=== PATIENT | female | born 1945 | race Caucasian/White ===

== ENCOUNTER 2018-11-13 15:36 | Outpatient (CLI) | payer MEDICARE, OTHER, SELFPAY ==
--- NOTE | 2018-11-13 11:03 | DI.RAD_ITS ---
EXAM: XR KNEE LT 2V AP,LAT INDICATION: pain. COMPARISON: No exams were available for comparison TECHNIQUE: 2D digital imaging was performed. FINDINGS: There is severe narrowing of medial femoral tibial joint and prominent periarticular spurring. There is also spurring at the patellofemoral joint. IMPRESSION: Severe degenerative changes of the medial femoral tibial joint.
== END 2018-11-13 15:56 ==
PROVIDERS: PCP Family Medicine; Visit Provider Orthopaedic Surgery
DX: M25.562 Pain in left knee (principal); M17.12 Unilateral primary osteoarthritis, left knee
CPT/HCPCS: 99203; 99214; 73560

== ENCOUNTER 2018-11-26 12:46 | Outpatient (CLI) | payer MEDICARE, OTHER, SELFPAY ==
--- NOTE | 2018-11-26 14:30 | W.PREOPHP ---
Assessment and Plan Assessment and plan (1) Osteoarthritis of left knee: Status: Chronic Assessment and plan: Plan: Educated patient on surgery covering surgical technique, recovery process, benefits and risks including but not limited to risk of infection, blood clot, damage to soft tissue/blood vessels/nerves in detail. After discussion patient gives verbal understanding of risks and elects to proceed with scheduling surgery. Patient had opportunity to have questions answered to their satisfaction. They will contact office if issues arise. Patient will continue to be scheduled for left total knee replacement with Dr. Padron. Qualifiers: Osteoarthritis type: primary Qualified Code(s): M17.12 - Unilateral primary osteoarthritis, left knee History of Present Illness Narrative: Ms. Rice is a 73-year-old female who presents to clinic for pre-operative visit for scheduled left TKA with Dr. Padron. Patient is status post right TKA done by Dr. Padron ~15 years ago; reports she then underwent a revision for aseptic loosening completed at [facility]. She continues to experience left knee pain over the last 6-8 years. Reports constant aching pain along the medial aspect of her knee. Pain is aggravated with sitting, walking and when bending. She has tried Aleve but continues to have pain that intefers with desired activity. Reports frequent falls and her left leg has given out on her twice in recent weeks. Denies any numbness or tingling. Due to her continued pain she was offered and elected to proceed with surgical intervention. Pertinent Surgical Information Denies past medical history of: Hypertension, stroke, cardiac issues, angina, asthma, renal issues, liver issues, hepatitis, gastrointestinal issues, ulcers, bleeding disorders, seizures, migraines, diabetes, autoimmune disorders Denies prior complications from surgery or anesthesia. Review of Systems Constitutional Constitutional: Denies fever(s), Denies frequent falls and Denies headache(s) Eyes Eyes: Denies change in vision ENT Ears, Nose, Mouth, and Throat: Denies dizziness, Denies ear discharge, Denies headache(s), Denies epistaxis, Denies nasal discharge and Denies sore throat Cardiovascular Cardiovascular: Denies chest pain, Denies rapid heart rate, Denies irregular heart rhythm, Denies palpitations, Denies dyspnea, Denies dyspnea on exertion (reports chronic MENDEZ when cleaning, etc; denies any recent change ), Denies orthopnea, Denies paroxysmal nocturnal dyspnea and Denies slow heart rate Respiratory Respiratory: Denies cough, Denies dyspnea, Denies dyspnea on exertion (reports chronic MENDEZ when cleaning, etc; denies any recent change ) and Denies wheezing Gastrointestinal Gastrointestinal: Denies abdominal pain, Denies melena, Denies hematochezia, Denies constipation, Reports diarrhea (reports recent bouts of diarrhea over the last several months), Denies nausea and Denies vomiting Genitourinary Genitourinary: Denies hematuria and Denies dysuria Musculoskeletal Musculoskeletal: Reports as per HPI, Reports numbness (in her right foot) and Reports tingling (in her right foot) Neurologic Neurologic: Denies dizziness, Denies frequent falls, Denies headache(s), Reports numbness (in her right foot) and Reports tingling (in her right foot) Endocrine Endocrine: Denies palpitations Allergic/Immunologic Allergic/Immunologic: Denies wheezing [facility] Medical History (Updated 11/26/18 @ 15:11 by Liliane Kirkland) Chronic kidney disease (Acute) Colon cancer (Chronic) COPD (chronic obstructive pulmonary disease) (Chronic) Depression (Chronic) Diabetes mellitus (Chronic) Disorder of pituitary gland (Acute) GERD (gastroesophageal reflux disease) (Chronic) History of palpitations (Acute) Surgical History (Updated 11/26/18 @ 14:41 by Liliane Kirkland) History of arthroscopic knee surgery (Chronic) Right Hx of colectomy (Chronic) Replacement of total knee joint (~2005) RIGHT: revision done 2014 Family History Mother Hypertensive disorder, systemic arterial Father Heart disease Sister Personal history of malignant neoplasm Grandfather No problems noted. Grandfather No problems noted. Grandmother No problems noted. Grandmother No problems noted. Social History (Updated 11/26/18 @ 14:43 by Liliane Kirkland) Smoking/Tobacco Use Status: Never Alcohol Intake: never Drug use: Never Current gender identity: female Meds Home Medications and Allergies Home Medications Medication Instructions Recorded Confirmed Type cholecalciferol (vitamin D3) 1,000 unit PO DAILY 07/09/12 11/26/18 History furosemide [Lasix] 80 mg PO QAM #90 tab-cap 07/15/12 11/26/18 History potassium chloride 1 tab PO DAILY #360 tab-cap 07/15/12 11/26/18 History losartan [Cozaar] 100 mg PO QAM #90 tab-cap 07/17/12 11/26/18 History sertraline 50 mg PO DAILY #30 tab-cap 03/13/13 11/26/18 History amlodipine 10 mg tablet 10 mg PO DAILY 11/13/18 11/26/18 History chlordiazepoxide HCl 25 mg capsule 25 mg PO TID PRN cap 11/13/18 11/26/18 History cimetidine 400 mg tablet 400 mg PO BID tab 11/13/18 11/26/18 History escitalopram oxalate 20 mg tablet 10 mg PO DAILY 11/13/18 11/26/18 History liothyronine 5 mcg tablet 5 mcg PO DAILY 11/13/18 11/26/18 History magnesium chloride 64 mg 64 mg PO DAILY 11/13/18 11/26/18 History (magnesium chloride) tablet,delayed release simvastatin 20 mg tablet 20 mg PO DAILY 11/13/18 11/26/18 History spironolactone 50 mg tablet 50 mg PO DAILY 11/13/18 11/26/18 History temazepam 30 mg capsule 30 mg PO QHS PRN 11/13/18 11/26/18 History tramadol 50 mg tablet 50 mg PO QHS PRN 11/13/18 11/26/18 History coenzyme Q10 [Co Q-10] 100 mg PO DAILY 11/26/18 11/26/18 History turmeric (bulk) [Curcumin] 1 11/26/18 History vitamin B complex 1 tab PO DAILY 11/26/18 11/26/18 History Allergies Allergy/AdvReac Type Severity Reaction Status Date / Time No Known Allergies Allergy Unverified 11/26/18 14:44 Exam Const General: cooperative and no acute distress [facility] Head: normal to inspection, normocephalic and atraumatic Ears: external ears normal General nose exam: external nose normal and no nasal discharge Face and sinus: face symmetric Mouth: oral mucosae normal, lip normal, tongue normal and moist mucous membranes Teeth and gingiva: fair dentition (partial upper plate dentures) Throat: posterior oropharynx normal Eyes General: appearance normal, both eyes and all related structures Pupils: PERRL EOM: EOM intact bilaterally Neck Neck: trachea midline Carotids: normal carotid upstroke Lymphatic: no lymphadenopathy noted Resp Effort & Inspection: normal respiratory effort and able to speak in complete sentences Auscultation: clear to auscultation bilaterally, no rales, no rhonchi and no wheezes Cardio Heart Sounds: S1 normal, S2 normal and no murmurs Pulses: radial pulses present bilaterally GI Palpation: soft, no hepatosplenomegaly and nontender Auscultation: normal bowel sounds Skin General skin exam: no rashes or lesions noted Results Labs Result diagrams: 11/26/18 14:21
[2018-11-26 14:38] LABS: Abs Immature Grans 0.02 k/cumm (0.0-0.09); Absolute Eosinophil Count 0.31 k/cumm (0.0-0.7); Absolute Lymphocyte Count 3.37 k/cumm (1.2-3.4); Absolute Neutrophil Count 8.19 k/cumm (1.2-6.7); Basophils % 0.5; Eosinophils % 2.4; HCT 44.3 % (36.0-46.0); HGB 14.2 g/dL (12.0-15.5); Immature Grans % 0.2; Lymphocytes % 26.4; Mean Corp. HGB Concentration 32.1 g/dL (32.0-36.0); Mean Corpuscular Hemoglobin 28.4 pg (27.0-33.0); Mean Corpuscular Volume 88.6 fL (80-95); Mean Platelet Volume 9.4 fL (8.0-11.0); Monocytes % 6.3; Neutrophils % 64.2; Platelet Count 385 x1000/uL (130-400); RBC Distribution Width 14.1 % (11.7-14.6); White Blood Cell Count 12.76 k/cumm (4.4-10.8)
[2018-11-26 14:41] LABS: Absolute Basophil Count 0.06 k/cumm (0.0-0.2)
== END 2018-11-26 13:06 ==
PROVIDERS: PCP Family Medicine; Visit Provider Orthopaedic Surgery
DX: M25.562 Pain in left knee (principal); M17.12 Unilateral primary osteoarthritis, left knee; Z01.818 Encounter for other preprocedural examination; Z01.812 Encounter for preprocedural laboratory examination; E11.9 Type 2 diabetes mellitus without complications; J44.9 Chronic obstructive pulmonary disease, unspecified
CPT/HCPCS: 36415; NC; 85025

== ENCOUNTER 2018-12-02 05:37 | Inpatient (IN) | payer MEDICARE, OTHER, SELFPAY ==
[2018-12-02] VITALS (13 sets, daily range): BP systolic 113–154; BP diastolic 49–78; PULSE 72–102; RESP 15–20; TEMP 36.6–37.1; O2SAT 91–98
[2018-12-02] MEDS: Lactated Ringers 1,000 ML 80 ML IV (06:42)
[2018-12-02] MEDS: Bupivacaine LIPOSOME/PF 133 MG/10 ML VIAL IJ (07:25)
[2018-12-02] MEDS: Bupivacaine 0.5% Pres-Free 30 ML VIAL (07:25)
[2018-12-02] MEDS: ceFAZolin 2 GM/50 ML BAG IVPB ×3 (07:55→20:20)
[2018-12-02] MEDS: Hydrogen Peroxide 3% 480 ML BTL (09:19)
--- NOTE | 2018-12-02 10:16 | DI.RAD_ITS ---
EXAM: XR KNEE LT 2V AP,LAT INDICATION: check total knee components in RR. COMPARISON: XR KNEE LT 2V AP,LAT from 11/13/2018 TECHNIQUE: 2D digital imaging was performed. FINDINGS: The patient is now status post left total knee replacement. The orthopedic hardware appears in good position. Skin pari are present. IMPRESSION: Left total knee replacement.
[2018-12-02] MEDS: POTASSIUM CHLORIDE/0.9% NACL 1,000 ML 125 MEQ IV (11:42)
--- NOTE | 2018-12-02 12:01 | ROE_ITS ---
DATE OF PROCEDURE: December 02, 2018 PREOPERATIVE DIAGNOSIS: Osteoarthritis of the left knee with varus deformity. POSTOPERATIVE DIAGNOSIS: Same. PROCEDURE: Left total knee arthroplasty. COMPONENTS USED: 1. Size 3 posterior cruciate-substituting femoral component. 2. Size 3 revision tibial tray. 3. 10 mm, size 3 posterior cruciate-substituting rotating platform polyethylene insert. 4. 32 mm tri-pronged patella. All components were cemented. ANESTHESIA: General plus femoral nerve block, Jamel Kemp CRNA SURGEON: Jg Padron M.D. BRAID CUTTER: Leatha Zamudio INDICATIONS: This is a 73-year-old white female with progressive left knee pain that's become disabl ing. She has previously undergone a right total knee replacement in 2005. She subsequently had a re vision in 2013 for aseptic loosening of the tibial component. Her left knee has continued to deterio rate over the last three years, to the point where it's severely impacting her activities of daily li ving. The pain is not responsive to all conservative measures including interarticular steroid and S ynvisc injections. Total knee arthroplasty was recommended to alleviate her pain and hopefully rachel re some of her previous ambulatory abilities. Because of a previous history of aseptic loosening of the tibial component, and because of her BMI of 40, I thought that using a revision tibial component would allow off-loading of the tibial component and hopefully prevent aseptic loosening of the tibial tray in the future. The risks and complications of the procedure were explained to the patient in d etail preoperatively. PROCEDURE: The patient was taken to the Operating Room on 12/02/18. She was placed supine on the op erating table and a femoral nerve block was administered. After good nerve block was obtained, a gen eral anesthetic was administered. A roll was placed under her left buttock. A proximal tourniquet w as applied to the left thigh and then the left lower extremity was prepped from toes to tourniquet an d draped free in the usual sterile fashion. Under proximal tourniquet control an anterior midline incision was made beginning just distal to the tibial tubercle and extending four inches proximal to the patella. The incision was carried down thr ough the subcu to the fascia. A medial parapatellar incision was made and was carried proximally and longitudinally in line with the quadriceps tendon. A complete medial subperiosteal release was perf ormed. The patella was everted and the knee was flexed. Medial and lateral meniscectomies were perf ormed. The anterior and posterior cruciate ligaments were sacrificed. The distal femur was resected using intramedullary alignment guides and jigs. She was found to require a size 3 femoral component , posterior cruciate-substituting. The proximal tibia was resected using extramedullary alignment gu ides and jigs. Minimal resection was used, taking 2 mm off the more affected medial side. After the initial tibial cut, reaming was performed for the longer stem on the revision tibial component using guides. The keel of the tibial component was then punched out in proper rotation alignment with a p unch and a mallet. Trial reduction was performed at this point. The knee was able to come to full e xtension and was totally stable to varus and valgus stressing from 0 to 90 degrees of flexion using a 10 mm insert. The trial components were removed. The patella was resected using the patellar rese ction guide. Care was taken to preserve 16 mm thickness of patella following resection. Using the d rill guide for the tri-pronged patella, 32 mm, the holes were reamed out for the three pegs on the pa tella. The proximal tibia was prepared for cementing with pulse irrigation lavage of saline solution and dry ing with peroxide-soaked strip sponges. One batch of gentamicin-impregnated methylmethacrylate was v acuum-mixed and was hand-packed onto the prepared tibia and on the back surface of the tibial compone nt. The tibial component was then inserted and packed into place with the impactor and mallet. Exce ss cement was trimmed from the margins of the tibial tray with the plastic cement removal tool. The trial components were inserted and the tibial component was further pressurized with the trial compon ents in place and extending the knee. When the first batch of methylmethacrylate had cured, the tria l components were removed. Excess cement was removed from the margins of the tibial component with a n osteotome and mallet. The femoral canal was plugged with resected bone from the distal femoral cut s. The distal femur and patella were prepared for cementing with pulse irrigation lavage of saline s olution and drying with peroxide-soaked strip sponges. A second batch of gentamicin-impregnated meth ylmethacrylate was vacuum-mixed and was hand-packed onto the prepared distal femur and patella and to the posterior surfaces of the femoral component and the patellar component. The femoral component w as impacted into place with the impactor and mallet and further pressurized using the trial tibial in sert and extending the knee. The patellar component was pressurized using the patellar clamp. Exces s cement was trimmed from the margins of the femoral component and the patellar component while the c ement was still soft using the plastic cement removal tool. When the second batch of gentamicin-impr egnated methylmethacrylate had cured, the clamp and the insert were removed. The posterior recesses were checked and any residual bone or cement debris was removed at this point. A final medial releas e was performed with periosteal elevators. The knee was irrigated with pulse irrigation lavage of sa line solution a final time. The actual insert, size 3, 10 mm posterior cruciate-substituting was the n placed on the tibial component and reduced onto the femoral condyles. Patellar tracking was checke d using the [id number]. The patella tracked anatomically. The knee was flexed over soft goods and closure was begun. The medial parapatellar capsular incision was approximated with interrupted [id number] sutures o f #1 Vicryl suture material. The incision in the quadriceps tendon was also repaired with interrupte d [id number] sutures of #1 Vicryl suture material. Before capsular closure the knee was irrigat ed with Betadine and saline solution, which was allowed to stay in the wound for a minute before suct ioning. The knee capsule was infiltrated with 0.5% Marcaine with an epinephrine solution. When the capsule was closed and watertight, I then injected into the knee an additional 15 cc's of 0.5% Marcai ne with an epinephrine solution and cycled the knee approximately fifty times to distribute the anest hetic throughout the knee joint. The subcu was approximated with interrupted #2-0 Vicryl sutures. T he skin edges were approximated with skin pari. The wound was dressed with Xeroform gauze followe d by a Mepilex dressing and then light sterile dressing. A Tran compressive dressing was applied fr om toes to groin. The tourniquet was released. A knee immobilizer splint was placed over the Tran compressive dressing to support the knee in extension. Blood loss was minimal due to tourniquet cont rol. The patient received 1 gram of tranexamic acid IV prior to tourniquet inflation and a second gr am of tranexamic acid IV after tourniquet deflation. The patient tolerated the procedure well and wa s discharged to the recovery room in good condition.
[2018-12-02] MEDS: oxyCODONE-CR 10 MG TABCR PO ×2 (12:10→23:40)
[2018-12-02] MEDS: HYDROcodone 5/Acetaminophen 325 TAB PO ×2 (12:19→18:10)
[2018-12-02] MEDS: Docusate Sodium 100 MG CAP PO ×2 (14:03→20:18)
[2018-12-02] MEDS: Ketorolac 30 MG/ML VIAL IVP ×2 (15:30→21:19)
[2018-12-02] MEDS: Tranexamic Acid 650 MG TAB 1300 MG PO ×2 (15:36→20:43)
--- NOTE | 2018-12-02 16:37 | PT.INIE ---
Date of service: 12/02/18 Time of Service: 13:00 PT Notes Inpatient Physical Therapy Evaluation Date: 12/02/2018 Referring Doctor: Jg Padron MD PT Orders: PT CONSULT: S/P Ortho Surgery Precautions: Fall. Standard. WBAT on L LE. Patient Profile/Admitting Diagnosis: Patient is a 73-year-old female s/p L TKA POD 0 due to primary unilateral osteoarthritis. PMHX: Medical History (Updated 11/26/18 @ 15:11 by Liliane Kirkland) Chronic kidney disease (Acute) Colon cancer (Chronic) COPD (chronic obstructive pulmonary disease) (Chronic) Depression (Chronic) Diabetes mellitus (Chronic) Disorder of pituitary gland (Acute) GERD (gastroesophageal reflux disease) (Chronic) History of palpitations (Acute) Surgical History (Updated 11/26/18 @ 14:41 by Liliane Kirkland) History of arthroscopic knee surgery (Chronic) Right Hx of colectomy (Chronic) Replacement of total knee joint (~2005) RIGHT: revision done 2014 Social History/Home Situation: Patient lives alone in a single-story home with three steps to enter. Equipment Owned/DME: None. Subjective: Patient reports 6/10 pain in the L posterior knee. She denies dizziness, headache, lightheadedness, and is agreeable to PT evaluation. Objective: General Observation: Patient is seen laying supine in bed with IV in R UE, antithromboembolic device on R LE, and colon catheter. Mental Status: Alert and oriented x 4 Pain: 6/10 pain ROM: Right Lower Extremity: Hip flexion WFL. Hip abduction WFL. Knee flexion WFL. Ankle dorsiflexion WFL. Ankle plantarflexion WFL. Left Lower Extremity: Not assessed due to pain and knee immobilizer. Strength: Right Lower Extremity: Hip flexors 5/5. Hip abductors 5/5. Knee flexors 5/5. Knee extensors 5/5. Ankle dorsiflexors 5/5. Ankle plantarflexors 5/5. Left Lower Extremity: Not assessed due to pain and immobilizing brace. Bed Mobility/Transfers: Rolling Min Supine to sit Min x 2 Sit to supine Min x 2 Sit to stand Min x 2 Stand to sit Min x 2 Bed to chair CGA x 2 Chair to bed CGA x 2 Gait: Patient ambulated 15? using a step to gait pattern. She required a FWW, CGA x 2, and exhibited a decreased step length, stance time on L LE, and overall gait speed. Patient reported lightheadedness right after ambulation activity that subsided with rest. Balance: Static Sitting: Normal Dynamic Sitting: Fair Static Standing: Fair Dynamic Standing: Fair Special Tests: Mobility Limitations Standardized Measure [facility] AM-PAC 6 clicks Basic Mobility Inpatient Short Form: Raw Score: 16 CMS Score: 54% Informed Consent/Education: Patient instructed in purpose of PT consult and plan of care. Assessment: Patient is a 73 year old female s/p L TKA POD 0 due to primary osteoarthritis. She lives alone in a one story home. She exhibited decreased ambulatory abilities and had higher dependency for bed mobility function. Her pain is well managed, and her prognosis is fair. Patient presents with clinical signs and symptoms consistent with current/admitting diagnoses that have resulted to mobility limitations, gait instability, generalized weakness, and impairment of motor control as demonstrated by the following impairment level findings: 1. Decreased strength to B LE major muscle groups 2. Impaired sitting/standing balance 3. Impaired activity tolerance 4. Limitation of joint range of motion in R knee. Impairments are contributing to the following functional limitations: 1. Dependent bed mobility skills 2. Increased dependence with transfers 3. Inability to safely ambulate without assistive device and physical assistance 4. Increase completion time for mobility ADL performance 5. Increased fall risk 6. Inability to negotiate steps alone safely Patient is assessed as a [id number] moderate complexity based on the following: History: Patient is a 73-year-old female s/p L TKA POD 0 due to primary unilateral osteoarthritis. Examination: Demonstrable impairment in strength, balance, and range of motion with underlying impairments and functional limitations as documented above Presentation: Evolving Decision Makin Moderate complexity Goals: Goals X1 week 1. Supine-Sit independent 2. Sit-Supine independent 3. Sit-Stand independent 4. Stand-Sit independent 5. Bed-Chair independent 6. Chair-Bed independent 7. Independent gait on level surface with use of least restrictive device for at least 300 feet without report of pain nor dyspnea 8. Independent stair negotiation while holding onto bilateral rails for at least 10 steps without report of pain nor dyspnea 9. Independent with home exercise program 10. Good static and dynamic standing balance/tolerance Plan of Care/Treatment Plan: 1-2x/day, 7 days/week x 1 week. Plan of care has been reviewed with the MARKETING ASSISTANT MANAGER providing the service under Physical Therapy direction. Initiate Physical Therapy intervention for strengthening, bed mobility, transfers, gait, stairs, balance training, use of assistive device. DISCHARGE RECOMMENDATIONS: Patient is to be discharged to home under the concerted care of her friends, neighbors, and family after she is medically stable, and all of the above goals are met. Patient will benefit from home health PT services in order to progress mobility level using front wheeled walker, assess home safety, identify additional equipment needs, and establish a functional maintenance program that will increase ability of patient to remain at home. TREATMENT CODE/TIME: [id number] x 20 minutes beginning at 13:00 PM. Thank you very much for this referral. Chance Hernandez [facility] Zeny Long PT, DPT, CLT [facility]
[2018-12-02] MEDS: Acetaminophen 325 MG TAB 650 MG PO ×2 (17:12→20:44)
[2018-12-02] MEDS: Simvastatin 20 MG TAB PO (20:20)
[2018-12-02] MEDS: Temazepam 15 MG CAP 30 MG PO (20:43)
[2018-12-02] MEDS: Normal Saline Flush 10 ML SYR IV (21:20)
[2018-12-03] MEDS: POTASSIUM CHLORIDE/0.9% NACL 1,000 ML 60 MEQ IV (01:40)
[2018-12-03] MEDS: ceFAZolin 2 GM/50 ML BAG IVPB ×4 (01:41→19:39)
[2018-12-03] MEDS: Normal Saline Flush 10 ML SYR IV ×3 (03:41→19:39)
[2018-12-03 03:42] VITALS: BP 166/78; PULSE 98; RESP 18; TEMP 36.7; O2SAT 94
[2018-12-03] MEDS: Ketorolac 30 MG/ML VIAL IVP ×4 (03:42→22:03)
[2018-12-03] MEDS: Liothyronine 5 MCG TAB PO (05:56)
[2018-12-03 07:15] LABS: HCT 38.9 % (36.0-46.0); HGB 12.1 g/dL (12.0-15.5); Mean Corp. HGB Concentration 31.1 g/dL (32.0-36.0); Mean Corpuscular Hemoglobin 28.3 pg (27.0-33.0); Mean Corpuscular Volume 90.9 fL (80-95); Mean Platelet Volume 9.4 fL (8.0-11.0); Platelet Count 334 x1000/uL (130-400); RBC 4.28 m/cumm (4.00-5.20); RBC Distribution Width 14.2 % (11.7-14.6); White Blood Cell Count 14.37 k/cumm (4.4-10.8)
[2018-12-03 07:17] LABS: Anion Gap 7.9 mmol/L (3-11); BUN 27 mg/dL (7-18); CO2 26.1 mmol/L (21.0-32.0); CREATININE 1.25 mg/dL (0.55-1.02); Calcium 8.9 mg/dL (8.5-10.1); Chloride 106 mmol/L (98-107); Estimated GFR 42.01 (mL/min/1.73m2); Glucose 120 mg/dL (70-100); Potassium 4.6 mmol/L (3.5-5.1); Sodium 140 mmol/L (136-145)
[2018-12-03 07:30] VITALS: BP 112/65; PULSE 89; RESP 18; TEMP 36.6; O2SAT 94
[2018-12-03] MEDS: HYDROcodone 5/Acetaminophen 325 TAB PO ×2 (07:45→14:49)
[2018-12-03] MEDS: Pantoprazole 40 MG TABCR PO (07:45)
[2018-12-03] MEDS: Escitalopram 20 MG TAB 10 MG PO (08:22)
[2018-12-03] MEDS: Vitamins B Comp w/C TAB 1 TAB PO (08:22)
[2018-12-03] MEDS: Spironolactone 50 MG TAB PO (08:22)
[2018-12-03] MEDS: Losartan 50 MG TAB 100 MG PO (08:22)
[2018-12-03] MEDS: Multivitamin w/Minerals TAB 1 TAB PO (08:22)
[2018-12-03] MEDS: Magnesium Chloride 64 MG TABCR PO (08:22)
[2018-12-03] MEDS: Cholecalciferol (Vitamin D3) 1,000 UNIT TAB 1000 UNITS PO (08:22)
[2018-12-03] MEDS: amLODIPine 10 MG TAB PO (08:22)
[2018-12-03] MEDS: Sertraline 50 MG TAB PO (08:23)
[2018-12-03] MEDS: Furosemide 80 MG TAB PO (08:23)
[2018-12-03] MEDS: Docusate Sodium 100 MG CAP PO ×3 (08:23→19:39)
--- NOTE | 2018-12-03 08:48 | PDOC.CMIN ---
- If Service Date Differs Date of service: 12/03/18 Time of Service: 08:48 Care Management Initial Assess REASON FOR HOSPITALIZATION:: Left Total Knee Arthroplasty PAST MEDICAL HISTORY/PAST SURGICAL HISTORY:: Medical History (Updated 11/26/18 @ 15:11 by Liliane Kirkland). Chronic kidney disease (Acute). Colon cancer (Chronic). COPD (chronic obstructive pulmonary disease) (Chronic). Depression (Chronic). Diabetes mellitus (Chronic). Disorder of pituitary gland (Acute). GERD (gastroesophageal reflux disease) (Chronic). History of palpitations (Acute). Surgical History (Updated 11/26/18 @ 14:41 by Liliane Kirkland). History of arthroscopic knee surgery (Chronic). Right. Hx of colectomy (Chronic). Replacement of total knee joint (~2005). RIGHT: revision done 2014 ADVANCE DIRECTIVES:: On file. HCA: Lillie Mi CODE STATUS:: Full Code INSURANCE COVERAGE / FINANCIAL ISSUES:: Medicare. [employer] PRIMARY CARE PHYSICIAN:: Jaden Danielle PATIENT/FAMILY EDUCATION NEEDS:: Discharge plan, limitations, follow up plan, Ask Me Three. TRANSPORTATION:: via private vehicle with family
[2018-12-03] MEDS: Enoxaparin 40 MG/0.4 ML SYR SC (10:14)
[2018-12-03 11:00] VITALS: BP 121/74; PULSE 84; RESP 18; TEMP 36.3; O2SAT 98
--- NOTE | 2018-12-03 11:01 | INITIAL_ITS ---
- If Service Date Differs Date of service: 12/03/18 Time of Service: 11:02 Care Management Initial Assess REASON FOR HOSPITALIZATION:: Post-op left total knee PAST MEDICAL HISTORY/PAST SURGICAL HISTORY:: Medical History: Chronic kidney disease, colon cancer, COPD (chronic obstructive pulmonary disease), depression, diabetes mellitus, disorder of pituitary gland, GERD (gastroesophageal reflux disease), and history of palpitations. Surgical History: History of arthroscopic knee surgery, right, hx of colectomy, and replacement of total knee joint. RIGHT: revision done 2014 PREVIOUS FUNCTIONAL STATUS/SOCIAL/FAMILY SUPPORTS:: Tika resides alone in [place], [place]. Her partner who has Alzheimers previously lived with her but approximately 6 months ago, he moved in with a private care provider as Tika could no longer care for him. Tika is independent in the community, drives, and manages her ADLs. She enjoys crocheting and knitting in her free time. She names her sister, Lillie, as a source of support for her. CURRENT FUNCTIONAL STATUS:: Tika is lying in bed when BRUNILDA meets with her. She is pleasant and easily engages in conversation. She talks about her partner and the difficult relationship she has with his daughter. ADVANCE DIRECTIVES:: On file; agent is Lillielexi Romero Has patient been provided with information about the portal?: No Did the patient sign up for the portal?: No CODE STATUS:: Full Code INSURANCE COVERAGE / FINANCIAL ISSUES:: Commercial [employer] Medicare Replacement; Medicare CURRENT HOME/COMMUNITY SERVICES/EQUIPMENT:: Tika shares this is her third knee surgery. She has a walker, a rise toilet seat, and shower bars at home. She currently does not have any community services. PRIMARY CARE PHYSICIAN:: Jaden Danielle MD POTENTIAL DISCHARGE NEEDS:: Follow-up appointment with PCP and PT. PATIENT/FAMILY EDUCATION NEEDS:: Discharge plan, limitations, and follow-up plan of care, including Ask Me Three and self-management. ANTICIPATED BARRIERS TO DISCHARGE:: None identified at this time. TRANSPORTATION:: Tika's friend will transport her home upon discharge. PLAN:: Tika will be discharged home when medically cleared by provider. Anticipate no additional services needed at time of discharge. Tika's friend will transport her home upon discharge.
[2018-12-03] MEDS: oxyCODONE-CR 10 MG TABCR PO ×2 (12:00→23:18)
--- NOTE | 2018-12-03 14:14 | CHAPLAIN ---
Tika is from [place], [place] and said she got up very early yesterday to be here for her surgery yesterday morning. She has her and a friend with her, and seems to be comfortable being here. I explained my role and offered support.
--- NOTE | 2018-12-03 14:39 | W.PM.PROGNOT ---
Date of Service Date of service: 12/03/18 Time of Service: 14:40 Assessment and Plan Assessment and plan (1) S/P total knee replacement using cement: Status: Acute Assessment and plan: Assessment: Stable p/o L TKR and progressingwell with mobility. Plan: Mobilize per protocol for TKR. D/C home when independant and taking PO pain meds. Subjective Subjective Patient reports: tolerating a regular diet Interval history since last seen: Sore, but as expected.] Pain well controlled with meds. Exam Narrative Exam Narrative: Afebrile. Vss. Hgb 12.1 g today. [place] out and she has voided. Potassium 4.6. Good active DF of R ankle. Good sensation and circulation to L toes. She has walked to nurses' station and up a few stairs at PT. Objective Objective Clinical Data: Abnormal lab results 12/03/18 12/03/18 Range/Units 06:05 06:05 WBC 14.37 H (4.4-10.8) k/cumm MCHC 31.1 L (32.0-36.0) g/dL BUN 27 H (7-18) mg/dL Creatinine 1.25 H (0.55-1.02) mg/dL Glucose 120 H (70-100) mg/dL Vital Signs Temperature 36.3 C L 12/03/18 11:00 Temperature Source Tympanic 12/03/18 11:00 Pulse 84 12/03/18 11:00 Pulse Rhythm Regular 12/03/18 08:31 Respiratory Rate 18 12/03/18 11:00 Respiratory Effort Non-Labored 12/03/18 08:31 Respiratory Depth Normal 12/03/18 08:31 Respiratory Pattern Normal 12/03/18 08:31 Blood Pressure 121/74 12/03/18 11:00 Pulse Oximetry 98 12/03/18 11:00 Respiratory End-tidal CO2 36 12/02/18 11:01 Oxygen Delivery Method Room Air 12/03/18 11:00 Oxygen Flow Rate 0 12/03/18 11:00 Pain Level 2 12/03/18 12:00 Intake & Output 12/02/18 12/03/18 12/03/18 23:59 11:59 23:59 Intake Total 1345.833 / 2417.166 1610 / 2563 953 / 2563 Output Total 1650 / 1750 900 / 900 Balance -304.167 / 667.166 710 / 1663 953 / 1663 Intake: IV 345.833 / 1417.166 770 / 1483 713 / 1483 Oral 1000 / 1000 840 / 1080 240 / 1080 Output: Urine 1650 / 1750 900 / 900 Other: Urine Color Pale Yellow Yellow Urine Appearance Clear Clear Laboratory Results WBC 14.37 k/cumm (4.4-10.8) H 12/03/18 06:05 RBC 4.28 m/cumm (4.00-5.20) 12/03/18 06:05 Hgb 12.1 g/dL (12.0-15.5) 12/03/18 06:05 Hct 38.9 % (36.0-46.0) 12/03/18 06:05 MCV 90.9 fL (80-95) 12/03/18 06:05 MCH 28.3 pg (27.0-33.0) 12/03/18 06:05 MCHC 31.1 g/dL (32.0-36.0) L 12/03/18 06:05 RDW 14.2 % (11.7-14.6) 12/03/18 06:05 Plt Count 334 x1000/uL (130-400) 12/03/18 06:05 MPV 9.4 fL (8.0-11.0) 12/03/18 06:05 Sodium 140 mmol/L (136-145) 12/03/18 06:05 Potassium 4.6 mmol/L (3.5-5.1) 12/03/18 06:05 Chloride 106 mmol/L (98-107) 12/03/18 06:05 Carbon Dioxide 26.1 mmol/L (21.0-32.0) 12/03/18 06:05 Anion Gap 7.9 mmol/L (3-11) 12/03/18 06:05 BUN 27 mg/dL (7-18) H 12/03/18 06:05 Creatinine 1.25 mg/dL (0.55-1.02) H 12/03/18 06:05 Estimated GFR/1.73 m2 42.01 (mL/min/1.73m2) 12/03/18 06:05 Glucose 120 mg/dL (70-100) H 12/03/18 06:05 Calcium 8.9 mg/dL (8.5-10.1) 12/03/18 06:05
[2018-12-03 16:08] VITALS: BP 120/70; PULSE 84; RESP 17; TEMP 36.4; O2SAT 94
[2018-12-03] MEDS: Simvastatin 20 MG TAB PO (19:39)
[2018-12-03 20:00] VITALS: BP 100/69; PULSE 63; RESP 17; TEMP 36.9; O2SAT 95
[2018-12-03 23:00] VITALS: BP 137/64; PULSE 90; RESP 18; TEMP 37.2; O2SAT 95
[2018-12-04] MEDS: HYDROcodone 5/Acetaminophen 325 TAB PO ×2 (00:15→09:09)
[2018-12-04 03:30] VITALS: BP 128/76; PULSE 80; RESP 16; TEMP 36.5; O2SAT 95
[2018-12-04] MEDS: Ketorolac 30 MG/ML VIAL IVP ×2 (03:30→11:10)
[2018-12-04] MEDS: ceFAZolin 2 GM/50 ML BAG IVPB ×2 (03:30→07:59)
[2018-12-04] MEDS: Normal Saline Flush 10 ML SYR IV ×3 (04:16→11:10)
[2018-12-04] MEDS: Acetaminophen 325 MG TAB 650 MG PO (06:27)
[2018-12-04] MEDS: Pantoprazole 40 MG TABCR PO (06:27)
[2018-12-04] MEDS: Liothyronine 5 MCG TAB PO (06:27)
[2018-12-04 07:17] VITALS: BP 98/61; PULSE 76; RESP 18; TEMP 36.7; O2SAT 95
[2018-12-04] MEDS: Normal Saline 500 ML IV (07:59)
[2018-12-04 08:04] LABS: HCT 34.2 % (36.0-46.0); HGB 10.6 g/dL (12.0-15.5); Mean Corpuscular Hemoglobin 28.4 pg (27.0-33.0); Mean Corpuscular Volume 91.7 fL (80-95); Mean Platelet Volume 9.7 fL (8.0-11.0); Platelet Count 266 x1000/uL (130-400); RBC 3.73 m/cumm (4.00-5.20); RBC Distribution Width 14.4 % (11.7-14.6); White Blood Cell Count 11.41 k/cumm (4.4-10.8)
[2018-12-04] MEDS: Losartan 50 MG TAB 100 MG PO (08:05)
[2018-12-04] MEDS: Cholecalciferol (Vitamin D3) 1,000 UNIT TAB 1000 UNITS PO (08:06)
[2018-12-04] MEDS: Magnesium Chloride 64 MG TABCR PO (08:06)
[2018-12-04] MEDS: Multivitamin w/Minerals TAB 1 TAB PO (08:06)
[2018-12-04] MEDS: Vitamins B Comp w/C TAB 1 TAB PO (08:06)
[2018-12-04] MEDS: Escitalopram 20 MG TAB 10 MG PO (08:08)
[2018-12-04] MEDS: Docusate Sodium 100 MG CAP PO (08:09)
[2018-12-04] MEDS: amLODIPine 10 MG TAB PO (08:09)
[2018-12-04] MEDS: Furosemide 80 MG TAB PO (08:09)
[2018-12-04] MEDS: Spironolactone 50 MG TAB PO (08:09)
[2018-12-04] MEDS: Sertraline 50 MG TAB PO (08:10)
--- NOTE | 2018-12-04 08:13 | PTTR_ITS ---
Date of service: 12/04/18 Time of Service: 11:09 PT Notes Inpatient Physical Therapy Treatment Note [facility] Date: 12/03/2018 PRECAUTIONS: [place]. Falls. WBAT L LE. SUBJECTIVE: AM: Patient reports she is still in pain when her leg is not elevated. She reports she has been walking with nursing, and was unable to get a full night?s sleep. She is agreeable to PT treatment this morning. PM: Patient is ready for physical therapy. She reports pain, but wants to work with PT so she can go home tomorrow. OBJECTIVE: AM: Patient is seen sitting upright in chair. She has IV in R UE, and knee immobilizer on L LE. PM: Patient is seen laying supine in bed with HOB elevated 45 degrees. She has an IV in R UE and knee immobilizer on L LE. PAIN: 5-6/10 BED MOBILITY/TRANSFERS Rolling L/R: SBA Supine-sit: SBA Sit-supine: Minimum assist Sit-stand: Moderate assist Stand-sit: Minimum assist Bed-Chair: CGA Chair-bed: [facility] GAIT Assistive Device: FWW Weight bearing: WBAT L Assist: [facility] wheelchair follow Distance: 75?+75? Deviation: Decreased stance time on L LE. Significant trunk sway. STAIRS: AM: Patient ascended three 4?? steps, and descended two 6-inch steps PM: Patient ascended and descended three 4?? steps x 5. THEREX: Patient was instructed to perform 10 SLRs during treatment. Patient was then prescribed 3-5 SLRs every hour. ASSESSMENT: Patient is a 73 year old female s/p L TKA POD 1 due to primary osteoarthritis. Her complaint of pain remains unchanged. She was able to ambulate 150?, and on stairs. She continues to be rather unstable and reported over ten falls over this last summer. She will require extensive balance training following discharge. Her prognosis is fair. Patient is showing signs/symptoms consistent with their current/admitting diagnoses. PLAN: Discharge to home under the concerted care of her friends, neighbors, and family. She will require a FWW and outpatient PT starting two weeks after discharge. TREATMENT CODE/TIME: 40079 x 31 minutes. Chance Hernandez [facility] In consultation with: Zeny Long PT, DPT, CLT [facility] is
--- NOTE | 2018-12-04 09:45 | CMPROGNOTE_ITS ---
Care Management Progress Note S/O: Tika continues to be closely monitored post surgically for pain management. She is progressing with mobility with PT, who recommend outpatient PT to begin after her two week follow up with Dr. Padron. CM continues to follow. A: 73 year old female admitted to [facility] 12/04/18 for Post-Op L TKA P: Tika will return home when ready per MD. She reports supportive friends, neighbors, and family plan to help her during recovery. CM will fill prescription FWW per PT/MD recommendations through [facility] at patient request. Anticipate Tika will have outpatient PT starting two weeks after discharge. She will transport via private vehicle with [employer] supports.
[2018-12-04] MEDS: Enoxaparin 40 MG/0.4 ML SYR SC (11:09)
[2018-12-04] MEDS: oxyCODONE-CR 10 MG TABCR PO (11:10)
[2018-12-04 11:29] VITALS: BP 115/69; PULSE 83; RESP 17; TEMP 36.9; O2SAT 95
--- NOTE | 2018-12-04 12:34 | PDOC.HHF2F_ITS ---
Home Health Certification Home Health Certification: 1. Encounter Date and Reason I certify that FRANSISCA TRIPLETT was seen by Jg Padron MD on 12/04/18 and that I had a [id number] encounter with this patient that meets the physician face to face encounter requirements. 2. Clinical Findings Supporting Skilled Need and Homebound Status I certify that home health services are medically necessary, include either intermittent intermediate and/or physical/speech therapy, and that this p atient is homebound in that absences from the home require considerable and taxing effort and are infrequent or of short duration, or are attributable to the need to receive medical care. [X] (a) Attached documentation from encounter provides clinical findings supporting skilled need and homebound status (including what assistance patient requires to leave the home). The encounter with the patient was in whole, or in part, for the following medical condition, which is the primary reason for home health care: POST-OP L TOTAL KNEE Residential: Physical Therapy:ROM and strengthening L knee Speech Therapy: Homebound: Reasonable criteria for homebound due to recent total knee replacement with limited ambulation and due to lack of transportation. 3. Certification and Authentication I certify that I composed the above information based on my clinical judgement relating to this patient's medical condition and, if applicable, clinical findings communicated to me by the NPP or inpatient physician who performed the Home Health Referral. All further orders will be obtained through (Community Based Physician - PCP)
--- NOTE | 2018-12-04 12:36 | W.PM.DS.N ---
Date of service: 12/04/18 Time of Service: 12:36 DS: Diagnosis Discharge Diagnosis (1) S/P total knee replacement using cement: Status: Acute Discharge Plan Disposition Patient Disposition: HOME W/HOME HEALTH SERVICE Condition: Good Discharge Details Reason For Visit: L total knee replacement Admit Date/Time: 12/02/18 05:37 Admit Provider: Jg Padron Attending Provider: Jg Padron Primary Care Provider: Jaden Danielle Hospital Course Hospital Course: Patient was taken to the operating room on the day of admission, 12/02/2018, where she underwent a left total knee replacement without complication. Postoperatively she will mobilized by physical therapy per protocol. Postop hemoglobin stabilized at 10.6 g at 48 hours postop. By 12/04/2018 she was fully independent with transfers and ambulation including ambulation and stairs. She was taking p.o. pain meds only. It was felt that she had completed her acute care goals and was ready for home discharge. She will require home health PT for the initial 2 weeks postop. Home Meds and New Rx's Prescriptions: New ibuprofen 600 mg tablet 600 mg PO TID Qty: 60 RF: 0 hydrocodone-acetaminophen 5-325 mg tablet 1 tab PO Q4H PRN (Reason: pain) Qty: 30 RF: 0 Continued amlodipine 10 mg tablet 10 mg PO DAILY RF: 0 chlordiazepoxide HCl 25 mg capsule 25 mg PO TID PRNRF: 0 cimetidine 400 mg tablet 400 mg PO BID RF: 0 escitalopram oxalate 20 mg tablet 10 mg PO DAILY RF: 0 spironolactone 50 mg tablet 50 mg PO DAILY RF: 0 temazepam 30 mg capsule 30 mg PO QHS PRNRF: 0 tramadol 50 mg tablet 50 mg PO QHS PRNRF: 0 simvastatin 20 mg tablet 20 mg PO DAILY RF: 0 magnesium chloride [Mag 64] 64 mg tablet,delayed release (DR/EC) 64 mg PO DAILY RF: 0 liothyronine 5 mcg tablet 5 mcg PO DAILY RF: 0 cholecalciferol (vitamin D3) 1,000 UNIT capsule 1,000 unit PO DAILY RF: 0 potassium chloride 20 MEQ tablet,ER particles/crystals 1 tab PO DAILY Qty: 360 RF: 4 furosemide [Lasix] 80 MG tablet 80 mg PO QAM Qty: 90 RF: 4 losartan [Cozaar] 100 MG tablet 100 mg PO QAM Qty: 90 RF: 4 sertraline 50 MG tablet 50 mg PO DAILY Qty: 30 RF: 3 vitamin B complex Tablet 1 tab PO DAILY RF: 0 coenzyme Q10 [Co Q-10] 100 mg Capsule 100 mg PO DAILY RF: 0 Curcumin 95 % Powder 1 RF: 0 Discharge Instructions Additional Instructions: Elevate left leg when sitting. Stop using the knee immobilizer splint when you can lift your left leg off the bed without it. Tomorrow may shower and get the dressing wet. Let the dressing gradually fall off by itself. Apply the Cryo/Cuff to the left knee 4 times a day for an hour each time to decrease swelling and pain. Wear the long elastic stocking on the left leg during the daytime only for 2 weeks. Follow-up with Dr. Padron in 2 weeks. Home health physical therapy referral. Walk every day as much as discomfort allows. Use a walker or cane as long as you limp. Take 1 baby aspirin(81 mg) twice a day for 30 days, to prevent blood clots in the legs. Take ibuprofen 600 mg 3 times a day to decrease swelling and inflammation. Take hydrocodone as prescribed for breakthrough pain, if needed. Care Plan Goals: Independant with ADL's and ambulation. Stand Alone Forms: Nursing Discharge Form Referrals: Jg Padron MD [ [facility] STAFF PHYSICIAN] - (f/u in 2 weeks.) Activity:: Activity as Tolerated Equipment/Supplies:: Walker Diet:: As Tolerated Discharge Orders Discharge Orders: Discharge Order (Routine); Ordered 12/04/18 Ordered By: Jg Padron DS: Summary Status at Discharge Functional status at discharge: uses cane/walker Overall status at discharge: patient is progressing back to baseline Mental Status: mental status grossly normal Speech and Movement: speech and movement normal Mood: congruent mood Affect: normal affect Exam Psych Mental Status: mental status grossly normal Speech and Movement: speech and movement normal Mood: congruent mood Affect: normal affect DS: Data Vitals/I&O Vitals and I&O: Vital Signs Temperature 36.7 C 12/04/18 07:17 Temperature Source Tympanic 12/04/18 07:17 Pulse 76 12/04/18 07:17 Pulse Rhythm Regular 12/04/18 03:30 Respiratory Rate 18 12/04/18 07:17 Respiratory Effort Non-Labored 12/04/18 03:30 Respiratory Depth Normal 12/04/18 03:30 Respiratory Pattern Normal 12/04/18 03:30 Blood Pressure 98/61 L 12/04/18 07:17 Pulse Oximetry 95 12/04/18 07:17 Respiratory End-tidal CO2 36 12/02/18 11:01 Oxygen Delivery Method Room Air 12/04/18 07:17 Oxygen Flow Rate 0 12/04/18 07:17 Pain Level 4 12/04/18 11:10 Intake & Output 12/03/18 12/04/18 12/04/18 23:59 11:59 23:59 Intake Total 1553 / 3163 490 / 490 Output Total 800 / 1700 1100 / 1100 Balance 753 / 1463 -610 / -610 Intake: IV 833 / 1603 90 / 90 Oral 720 / 1560 400 / 400 Output: Urine 800 / 1700 1100 / 1100 Other: Urine Color Yellow Yellow Urine Appearance Clear Clear Urine Odor None Comment pt missed hat Voiding Methods Toilet Toilet Data Completed and Pending Labs on day of discharge: Labs from last 24 hours 12/04/18 07:05 WBC 11.41 H RBC 3.73 L Hgb 10.6 L Hct 34.2 L MCV 91.7 MCH 28.4 MCHC 31.0 L RDW 14.4 Plt Count 266 MPV 9.7 PFSH Family History Mother Hypertensive disorder, systemic arterial Father Heart disease Sister Personal history of malignant neoplasm Grandfather No problems noted. Grandfather No problems noted. Grandmother No problems noted. Grandmother No problems noted. Social History (Updated 11/26/18 @ 14:43 by Liliane Kirkland) Smoking/Tobacco Use Status: Never Alcohol Intake: never Drug use: Never Current gender identity: female
--- NOTE | 2018-12-04 14:17 | CMDISCH_ITS ---
LACE Index Scoring Tool - Questions: Length of Stay (in days): 2 Acuity (Admit via E.D.?): No Comorbidities: Diabetes w/o Complication, Chronic Pulmonary Disease E.D. Visits: 0 - Answers: Total Score: 5 Risk of Readmission: Low Risk Care Management Discharge Reason for Hospitalization: Post-op left total knee Discharge Plan: Tika will return home when ready per MD. She reports supportive friends, neighbors, and family plan to help her during recovery. Tika reports she will borrow a FWW with a friend. Dr. Padron ordered [facility] supports for PT, CM faxed to [facility] F#[phone]. She will transport via private vehicle with her significant other, Jamel. Patient/Family Education Needs: Review of discharge instructions, discuss Ask Me Three. Services Needed at Discharge: [facility]
--- NOTE | 2018-12-04 15:24 | PT.INTREAT ---
Date of service: 12/04/18 Time of Service: 10:00 PT Notes Inpatient Physical Therapy Treatment Note [facility] Date: 12/04/2018 PRECAUTIONS: Fall, WBAT L SUBJECTIVE: Tika is agreeable to participating in PT, she states that she is hoping to be discharged to home this afternoon. OBJECTIVE: PAIN: Patient c/o L knee pain with transfers, gait, and ther ex BED MOBILITY/TRANSFERS Supine-sit: S with HOB flat Sit-supine: S with HOB flat Sit-stand: SBA Stand-sit: SBA GAIT Assistive Device: FWW Weight bearing: WBAT L Assist: SBA Distance: 100' x2 Deviation: Decreased senthil THEREX: Patient completed a LE strengthening and stabilization program, in a supine position, as per flow sheet. Patient ends with cryocuff to L knee. STAIRS: Up/down 3x4 and 2x6 using 1 rail/SPC and a step-to pattern with supervision. ASSESSMENT: Patient tolerated session with complaints of L knee pain. She was able to complete a progression in gait distance with FWW support and SBA. She would benefit from continued gait and transfer training and general conditioning for improved activity tolerance and mobility. PLAN: As per primary PT TREATMENT CODE/TIME: 60 minutes; 05454 x3, [id number]
--- NOTE | 2018-12-04 15:45 | NUR.NOTE ---
Nursing Note: Patient declined both the flu and pneumonia vaccinations
--- NOTE | 2018-12-05 12:22 | PT.INDS ---
Date of service: 12/05/18 PT Notes PT Inpatient Discharge Summary Date: 12/02/2018 Referring Doctor: Jg Padron MD PT Orders: PT CONSULT: S/P Ortho Surgery Precautions: Fall. Standard. WBAT on L LE. Patient Profile/Admitting Diagnosis: Patient is a 73-year-old female s/p L TKA POD 2 due to primary unilateral osteoarthritis. PMHX: Medical History (Updated 11/26/18 @ 15:11 by Liliane Kirkland) Chronic kidney disease (Acute) Colon cancer (Chronic) COPD (chronic obstructive pulmonary disease) (Chronic) Depression (Chronic) Diabetes mellitus (Chronic) Disorder of pituitary gland (Acute) GERD (gastroesophageal reflux disease) (Chronic) History of palpitations (Acute) Surgical History (Updated 11/26/18 @ 14:41 by Liliane Kirkland) History of arthroscopic knee surgery (Chronic) Right Hx of colectomy (Chronic) Replacement of total knee joint (~2005) RIGHT: revision done 2014 Social History/Home Situation: Patient lives alone in a single-story home with three steps to enter. Equipment Owned/DME: None. Subjective: NT Objective: General Observation: NT Mental Status: NT Pain: NT ROM: Right Lower Extremity: Hip flexion WFL. Hip abduction WFL. Knee flexion WFL. Ankle dorsiflexion WFL. Ankle plantarflexion WFL. Left Lower Extremity: Not assessed due to pain and knee immobilizer. Strength: Right Lower Extremity: Hip flexors 5/5. Hip abductors 5/5. Knee flexors 5/5. Knee extensors 5/5. Ankle dorsiflexors 5/5. Ankle plantarflexors 5/5. Left Lower Extremity: Not assessed due to pain and immobilizing brace. Bed Mobility/Transfers: Rolling supervision Sit to supine supervision Sit to stand SBA Stand to sit SBA Bed to chair SBA Chair to bed SBA Gait: Patient ambulated 100' x 2 using a step to gait pattern. She required a FWW, SBA, and exhibited a decreased step length, stance time on L LE, and overall gait speed. Patient is able to tolerate up and down three 4-inch steps and two 6-inch steps while holding onto rail with on one hand and a SC on the other with supervision. Balance: Static Sitting: Normal Dynamic Sitting: Fair Static Standing: Fair Dynamic Standing: Fair Assessment: Patient is a 73 year old female s/p L TKA POD 2 due to primary osteoarthritis. She lives alone in a one story home. She exhibited decreased ambulatory abilities and had higher dependency for bed mobility function. Her pain is well managed, and her prognosis is fair. Patient presents with clinical signs and symptoms consistent with current/admitting diagnoses that have resulted to mobility limitations, gait instability, generalized weakness, and impairment of motor control as demonstrated by the following impairment level findings: 1. Decreased strength to B LE major muscle groups 2. Impaired sitting/standing balance 3. Impaired activity tolerance 4. Limitation of joint range of motion in R knee. Impairments are contributing to the following functional limitations: 1. Dependent bed mobility skills 2. Increased dependence with transfers 3. Inability to safely ambulate without assistive device and physical assistance 4. Increase completion time for mobility ADL performance 5. Increased fall risk 6. Inability to negotiate steps alone safely Goals: Goals X1 week 1. Supine-Sit independent NOT MET 2. Sit-Supine independent NOT MET 3. Sit-Stand independent NOT MET 4. Stand-Sit independent NOT MET 5. Bed-Chair independent NOT MET 6. Chair-Bed independent NOT MET 7. Independent gait on level surface with use of least restrictive device for at least 300 feet without report of pain nor dyspnea NOT MET 8. Independent stair negotiation while holding onto bilateral rails for at least 10 steps without report of pain nor dyspnea NOT MET 9. Independent with home exercise program NOT MET 10. Good static and dynamic standing balance/tolerance NOT MET DISCHARGE RECOMMENDATIONS: Patient is to be discharged to home under the concerted care of her friends, neighbors, and family after she is medically stable, and all of the above goals are met. Patient will benefit from home health PT services in order to progress mobility level using front wheeled walker, assess home safety, identify additional equipment needs, and establish a functional maintenance program that will increase ability of patient to remain at home. TREATMENT CODE/TIME: NT. Thank you very much for this referral. Zeny Long PT, DPT, CLT [facility]
== END 2018-12-04 14:12 | disposition home health service (06) | DRG 470 ==
LOC: PDS 10:40 → MS 11:09
PROVIDERS: Admitting Provider Orthopaedic Surgery; PCP Family Medicine; Visit Provider Orthopaedic Surgery
PROC: 0SRD0J9 Replacement of Left Knee Joint with Synthetic Substitute, Cemented, Open Approach (ICD-10-PCS; CPT 27447; principal; 2018-12-02 07:30)
DX: M17.12 Unilateral primary osteoarthritis, left knee (principal); M25.562 Pain in left knee; M21.162 Varus deformity, not elsewhere classified, left knee; Z96.653 Presence of artificial knee joint, bilateral; E11.22 Type 2 diabetes mellitus with diabetic chronic kidney disease; N18.9 Chronic kidney disease, unspecified; K21.9 Gastro-esophageal reflux disease without esophagitis; J44.9 Chronic obstructive pulmonary disease, unspecified; F32.9 Major depressive disorder, single episode, unspecified
CPT/HCPCS: 27447; 36415; 80048; 85027; 97110; 97530; J1650; NC; 73560; J0131; J0690; J1100; J1885; J2250; J3010; L1830

== ENCOUNTER → 2018-12-18 10:21 | Outpatient (BNVA) | payer MEDICARE, OTHER, SELFPAY | PROVIDERS: PCP Family Medicine; Referring Provider Family Medicine; Visit Provider Orthopaedic Surgery | DX: Z47.1 Aftercare following joint replacement surgery (principal); Z96.652 Presence of left artificial knee joint ==

== ENCOUNTER 2022-03-27 14:32 | Outpatient (CLI) | payer MEDICARE, SELFPAY ==
--- NOTE | 2022-03-27 14:15 | DI.RAD_ITS ---
Exam(s) XR KNEE LT 3V AP,LAT,JOAO EXAM: XR KNEE LT 3V AP,LAT,JOAO CLINICAL HISTORY: painful L TKR. TECHNIQUE: 2D digital imaging was performed. Three views. COMPARISON: CR XR KNEE LT 2V AP,LAT from 12/02/2018 FINDINGS: There has been no change in the appearance of the femoral and tibial portions of the prosthesis. On the merchant's view, there is abnormal widening of the patellofemoral joint and lateral patellar tilt . DATA REPOSITORY: RADIATION DOSE DELIVERED:
== END 2022-03-27 14:33 | disposition home or self-care (01) ==
LOC: DIORS 14:33
PROVIDERS: PCP Family Medicine; Referring Provider Family Medicine; Visit Provider Student in an Organized Health Care Education/Training Program
DX: Z96.652 Presence of left artificial knee joint (principal); T84.84XA Pain due to internal orthopedic prosthetic devices, implants and grafts, initial encounter
CPT/HCPCS: 73562; 99203